=== PATIENT | male | born 1980 | race Caucasian/White ===

== ENCOUNTER 2017-04-01 15:18 | Emergency (ER) | payer BC ==
[~2017-04-01] VITALS: Ht 165.1 cm; Wt 72.2 kg
[~2017-04-01 15:18] MED LIST: DEXL60CA4 PO; LEVO125T72 PO; LIOT1TAB10 PO
[2017-04-01 15:22] VITALS: TEMP 36.7; Ht 165.1 cm; Wt 72.2 kg
[2017-04-01 17:24] LABS: BASO % 0.5 %; BASO ABS # 0.02 K/uL (0-0.2); COMPLETE YES; EOS % 4.7 %; HEMATOCRIT 42.3 % (42-52); IG% 0.3 %; LYMPH % 29.8 %; LYMPH ABS # 1.15 K/uL (1.2-3.4); MEAN CELL VOLUME 87.2 fL (80-100); MEAN CORPUSCULAR HEMOGLOBIN 31.1 pg (25-34); MEAN CORPUSCULAR HGB CONC 35.7 g/dl (32-36); MEAN PLATELET VOLUME 10.2 fL (7.4-10.4); MONO % 7.5 %; NEUT % 57.2 %; PLATELET COUNT 171 K/uL (130-400); RED BLOOD COUNT 4.85 M/uL (4.7-6.1); WHITE BLOOD COUNT 3.86 K/uL (4.8-10.8)
[2017-04-01 17:40] LABS: ALT/SGPT 30 U/L (12-78); BLOOD UREA NITROGEN 18 mg/dl (7-18); BUN/CREATININE RATIO 15.9 (10-20); CALCIUM 9.2 mg/dl (8.5-10.1); CARBON DIOXIDE 31 mmol/L (21-32); CHLORIDE 106 mmol/L (98-107); GLUCOSE 93 mg/dl (70-99); POTASSIUM 4.2 mmol/L (3.5-5.1); SODIUM 141 mmol/L (136-145)
[2017-04-01 17:43] LABS: PROTHROMBIN TIME (PATIENT) 10.3 SECONDS (9.0-12.0)
--- NOTE | 2017-04-01 17:43 | DIAGNOSTIC IMAGING REPORT ---
CHEST ONE VIEW PORTABLE CLINICAL HISTORY: Evaluate Fever/Sepsis dyspnea COMPARISON STUDY: 03/10/2015 FINDINGS: The bones soft tissues and hemidiaphragms are normal. The cardiomediastinal silhouette is normal. The lungs are clear. The pulmonary vasculature is normal. IMPRESSION: Negative chest. The above report was generated using voice recognition software. It may contain grammatical, syntax or spelling errors. Electronically signed by: Juan Garcia M.D. 04/01/2017 5:42 PM Dictated Date/Time: 04/01/2017 5:42 PM
[2017-04-01 17:51] LABS: ALKALINE PHOSPHATASE 73 U/L (45-117); AST/SGOT 24 U/L (15-37); THYROID STIMULATING HORMONE 0.517 uIu/ml (0.300-4.500)
--- NOTE | 2017-04-01 18:43 | EMERGENCY ROOM VISIT NOTE ---
History Report prepared by Daveibe: Jennifer Lin Under the Supervision of: Dr. Lucien Rodriguez D.O. First contact with patient: 16:33 Chief Complaint: CARDIAC ASSESSMENT Stated Complaint: HEART PALPITATIONS,NAUSEA,SOB Nursing Triage Summary: "It feels like my heart is palpating, it comes and goes. I feel really weak and worn out" per pt. Denies CP. History of Present Illness The patient is a 37 year old male who presents to the Emergency Room with complaints of worsening heart palpitations for the past 1 week. He notes the palpitations are intermittent and last for approximately 1 to 2 minutes. They seem to be worse after the patient has eaten. Around 1400 today, he experienced rapid palpitations and dizziness, which prompted him wanting to come to the ED. He also complains of feeling "weak and worn out" over the past few days. He denies any chest pain. The patient has a history of hyperthyroidism and Grave's Disease and underwent a thyroid ablation "several years ago". He follows with Dr. Gee of [facility]. This past Sunday, the patient had blood work drawn by his PCP and he notes he saw [facility] in the past and underwent a Holter monitor that came back unremarkable. 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 A total of 10 systems reviewed and were otherwise negative. Past Medical & Surgical Medical Problems: (1) Asthma (2) Graves disease (3) Hyperthyroidism (4) Hypothyroidism (5) Irritable Bowel Syndrome Surgical Problems: (1) H/O thyroidectomy Family History Diabetes mellitus Social History Smoking Status: Never Smoker Alcohol Use: occasionally Drug Use: none Marital Status: Housing Status: lives with family Occupation Status: employed Current/Historical Medications Scheduled Levothyroxine Sodium (Synthroid), 125 MCG PO DAILY Allergies Coded Allergies: Sulfa Drugs (Verified Allergy, Mild, 04/01/17) Amoxicillin (Unverified Allergy, Unknown, RASH, 04/01/17) Clavulanic Acid (Unverified Allergy, Unknown, RASH, 04/01/17) Promethazine (Unverified Allergy, Unknown, ITCHY/JITTERY, 04/01/17) Physical Exam Vital Signs Date Time Temp Pulse Resp B/P (MAP) Pulse Ox O2 Delivery O2 Flow Rate FiO2 04/01/17 18:26 55 18 110/71 97 Room Air 04/01/17 16:47 52 18 136/77 97 Room Air 04/01/17 16:39 59 04/01/17 15:24 99 Room Air 04/01/17 15:22 36.7 62 16 134/76 99 Room Air Physical Exam CONSTITUTIONAL/VITAL SIGNS: Reviewed / noted above. GENERAL: Non-toxic in appearance. INTEGUMENTARY: Warm, dry, and [place]. HEAD: Normocephalic. EYES: without scleral icterus or trauma. ENT/OROPHARYNX: clear and moist. LYMPHADENOPATHY/NECK: Is supple without lymphadenopathy or meningismus. RESPIRATORY: Lungs clear and equal. CARDIOVASCULAR: Regular rate and rhythm. GI/ABDOMEN: Soft and nontender. No organomegaly or pulsatile mass. No rebound or guarding. Normal bowel sounds. EXTREMITIES: Warm and well perfused. BACK: No CVA tenderness. NEUROLOGICAL: Intact without focal deficits. PSYCHIATRIC: normal affect. MUSCULOSKELETAL: Normally developed with good muscle tone. Medical Decision & Procedures ER Provider Diagnostic Interpretation: Radiology results as stated below per my review and radiologist interpretation: CHEST ONE VIEW PORTABLE CLINICAL HISTORY: Evaluate Fever/Sepsis dyspnea COMPARISON STUDY: 03/10/2015 FINDINGS: The bones soft tissues and hemidiaphragms are normal. The cardiomediastinal silhouette is normal. The lungs are clear. The pulmonary vasculature is normal. IMPRESSION: Negative chest. The above report was generated using voice recognition software. It may contain grammatical, syntax or spelling errors. Electronically signed by: Juan Garcia M.D. 04/01/2017 5:42 PM Laboratory Results 04/01/17 17:15 Red Blood Count 4.85, Mean Corpuscular Volume 87.2, Mean Corpuscular Hemoglobin 31.1, Mean Corpuscular Hemoglobin Concent 35.7, Mean Platelet Volume 10.2, Neutrophils (%) (Auto) 57.2, Lymphocytes (%) (Auto) 29.8, Monocytes (%) (Auto) 7.5, Eosinophils (%) (Auto) 4.7, Basophils (%) (Auto) 0.5, Neutrophils # (Auto) 2.21, Lymphocytes # (Auto) 1.15, Monocytes # (Auto) 0.29, Eosinophils # (Auto) 0.18, Basophils # (Auto) 0.02 04/01/17 17:15 Test 04/01/17 17:15 White Blood Count 3.86 K/uL (4.8-10.8) Red Blood Count 4.85 M/uL (4.7-6.1) Hemoglobin 15.1 g/dL (14.0-18.0) Hematocrit 42.3 % (42-52) Mean Corpuscular Volume 87.2 fL (80-100) Mean Corpuscular Hemoglobin 31.1 pg (25-34) Mean Corpuscular Hemoglobin Concent 35.7 g/dl (32-36) Platelet Count 171 K/uL (130-400) Mean Platelet Volume 10.2 fL (7.4-10.4) Neutrophils (%) (Auto) 57.2 % Lymphocytes (%) (Auto) 29.8 % Monocytes (%) (Auto) 7.5 % Eosinophils (%) (Auto) 4.7 % Basophils (%) (Auto) 0.5 % Neutrophils # (Auto) 2.21 K/uL (1.4-6.5) Lymphocytes # (Auto) 1.15 K/uL (1.2-3.4) Monocytes # (Auto) 0.29 K/uL (0.11-0.59) Eosinophils # (Auto) 0.18 K/uL (0-0.5) Basophils # (Auto) 0.02 K/uL (0-0.2) RDW Standard Deviation 36.9 fL (36.4-46.3) RDW Coefficient of Variation 11.6 % (11.5-14.5) Immature Granulocyte % (Auto) 0.3 % Immature Granulocyte # (Auto) 0.01 K/uL (0.00-0.02) Prothrombin Time 10.3 SECONDS (9.0-12.0) Prothromb Time International Ratio 1.0 (0.9-1.1) Activated Partial Thromboplast Time 26.4 SECONDS (21.0-31.0) Partial Thromboplastin Ratio 1.0 D-Dimer < 190 ug/L FEU (0-500) Anion Gap 4.0 mmol/L (3-11) Est Creatinine Clear Calc Drug Dose 78.4 ml/min Estimated GFR () 97.5 Estimated GFR (Non- 84.1 BUN/Creatinine Ratio 15.9 (10-20) Calcium Level 9.2 mg/dl (8.5-10.1) Total Bilirubin 0.3 mg/dl (0.2-1) Direct Bilirubin < 0.1 mg/dl (0-0.2) Aspartate Amino Transf (AST/SGOT) 24 U/L (15-37) Alanine Aminotransferase (ALT/SGPT) 30 U/L (12-78) Alkaline Phosphatase 73 U/L (45-117) Total Creatine Kinase 400 U/L (39-308) Creatine Kinase MB 3.9 ng/ml (0.5-3.6) Creatine Kinase MB Ratio 1.0 (0-3.0) Troponin I < 0.015 ng/ml (0-0.045) Total Protein 7.5 gm/dl (6.4-8.2) Albumin 4.1 gm/dl (3.4-5.0) Lipase 216 U/L (73-393) Thyroid Stimulating Hormone (TSH) 0.517 uIu/ml (0.300-4.500) Lyme Disease IgG Antibody NEG (NEG) Laboratory results as stated above per my review. ECG Indication: palpitations Rate (beats per minute): 54 Rhythm: sinus bradycardia Findings: no acute ischemic change, no ectopy ED Course 1634: Previous medical records were reviewed. The patient was evaluated in room C8. A complete history and physical examination was performed. 1925: I reevaluated the patient. He is feeling well and resting comfortably. I discussed his results and discharge instructions and he verbalized complete understanding and agreement. Medical Decision the differential that was considered includes acute myocardial infarction, acute coronary syndrome, myocarditis, pericarditis, pericardial effusions / tamponade, esophageal perforation, thoracic aortic dissection, pulmonary embolism, pneumonia, pneumothorax, pancreatitis, shingles, acute cholecystitis, perforated abdominal viscus. This is a 37-year-old male who presents to the ED with a chief complaint of palpitations. He states that he has had palpitations over the last week. Today he noticed that his heart seemed to be racing and he felt like he could not catch his breath. This occurred between 2 and 3 PM today. The patient reports that his symptoms lasted for about 1-2 minutes and resolved. He does report a history of PVCs in the past. He also reports history of hypothyroidism and currently being on Synthroid. He states that he is adjusting the dose because he feels like he might be taking too much. He had blood work by his PCP on Sunday but does not know the results. The patient has no other specific complaints. His exam was normal. His vital signs are normal. He does have an occasional PVC noted on his monitor. His 12-lead EKG reveals sinus bradycardia rate of 54. No acute injury or ectopy. D-dimer is negative, troponin is negative, CBC is unremarkable, complete metabolic panel was normal. TSH is normal, chest x-ray did not show acute disease. Lyme is negative. The patient was monitored during his stay and did not have any significant arrhythmias. The patient was told the results the test. He is felt to be stable for discharge and outpatient follow-up. Medication Reconcilliation Current Medication List: was personally reviewed by me Blood Pressure Screening Patient's blood pressure: Normal blood pressure Blood pressure disposition: Did not require urgent referral Impression Primary Impression: Palpitations Scribe Attestation The scribe's documentation has been prepared under my direction and personally reviewed by me in its entirety. I confirm that the note above accurately reflects all work, treatment, procedures, and medical decision making performed by me. 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 Follow-up with your family doctor as well. Return to the emergency department for worsening or new symptoms or any concerns. You have been examined and treated today on an emergency basis only. This is not a substitute for, or an effort to provide, complete comprehensive medical care. It is impossible to recognize and treat all injuries or illnesses in a single emergency department visit. It is therefore important that you follow up closely with your doctor. Call as soon as possible for an appointment.
[2017-04-01 19:40] VITALS: BP 121/68; PULSE 61; O2SAT 96
== END 2017-04-01 19:40 | disposition home or self-care (01) ==
LOC: C.EDB 15:19 → C.EDC 19:40
DX: R00.2 Palpitations (principal); J45.909 Unspecified asthma, uncomplicated; E05.00 Thyrotoxicosis with diffuse goiter without thyrotoxic crisis or storm; E03.9 Hypothyroidism, unspecified; Z83.3 Family history of diabetes mellitus

== ENCOUNTER 2017-06-28 11:36 | Emergency (ER) | payer BC ==
[~2017-06-28] VITALS: Ht 165.1 cm; Wt 73.0 kg
[~2017-06-28 11:36] MED LIST changes: -DEXL60CA4 PO; -LIOT1TAB10 PO
[2017-06-28 11:39] VITALS: Ht 165.1 cm; Wt 73.0 kg
[2017-06-28] MEDS ORDERED: LIDOCAINE HCL 2% VISC SOLN 20 ML UDC PO STA (12:24)
[2017-06-28] MEDS ORDERED: ALUMINUM/MAGNESIUM SUSP 30 ML UDC PO STA (12:24)
[2017-06-28 12:28] VITALS: O2SAT 97
[2017-06-28] MEDS ORDERED: LEVO112T2 PO (12:28)
--- NOTE | 2017-06-28 13:00 | DIAGNOSTIC IMAGING REPORT ---
CHEST ONE VIEW PORTABLE CLINICAL HISTORY: cp eval for pna pain. Cough. COMPARISON STUDY: 04/01/2017 FINDINGS: The bones soft tissues and hemidiaphragms are normal. The cardiomediastinal silhouette is normal. The lungs are clear. The pulmonary vasculature is normal. IMPRESSION: Negative chest. The above report was generated using voice recognition software. It may contain grammatical, syntax or spelling errors. Electronically signed by: Juan Garcia M.D. 06/28/2017 12:59 PM Dictated Date/Time: 06/28/2017 12:59 PM
[2017-06-28 13:09] LABS: POINT OF CARE TROPONIN I < 0.030 ng/ml (0-0.045)
[2017-06-28 13:29] LABS: PROTHROMBIN TIME (PATIENT) 10.7 SECONDS (9.0-12.0)
[2017-06-28 13:37] LABS: BASO % 0.4 %; BASO ABS # 0.02 K/uL (0-0.2); COMPLETE YES; EOS % 3.2 %; HEMATOCRIT 44.8 % (42-52); IG% 0.2 %; LYMPH % 27.2 %; LYMPH ABS # 1.27 K/uL (1.2-3.4); MEAN CELL VOLUME 91.2 fL (80-100); MEAN CORPUSCULAR HGB CONC 33.9 g/dl (32-36); MEAN PLATELET VOLUME 10.6 fL (7.4-10.4); MONO % 9.2 %; NEUT % 59.8 %; PLATELET COUNT 186 K/uL (130-400); RED BLOOD COUNT 4.91 M/uL (4.7-6.1); WHITE BLOOD COUNT 4.67 K/uL (4.8-10.8)
[2017-06-28 13:39] LABS: BUN/CREATININE RATIO 15.6 (10-20); CREATININE 1.07 mg/dl (0.60-1.40); POTASSIUM 3.9 mmol/L (3.5-5.1)
[2017-06-28 13:50] LABS: THYROID STIMULATING HORMONE 2.87 uIu/ml (0.300-4.500)
[2017-06-28 16:27] VITALS: BP 113/75; PULSE 86; TEMP 36.9; O2SAT 96
--- NOTE | 2017-06-28 17:02 | EMERGENCY ROOM VISIT NOTE ---
History Report prepared by Jamal: Reese Moreno Under the Supervision of: Dr. Jack Shaffer M.D. First contact with patient: 12:16 Chief Complaint: CHEST PAIN Stated Complaint: CHEST PAIN, DIZZY Nursing Triage Summary: Dizziness, heart palpitations, & headaches since March, seeing two specialists for it but continues to feel worse. This week developed CP. Pt verbalizes his neurologist thinks its cluster headaches. Pt had labwork done today here from chief clinical dietitian, Dr. Montes at in [facility], does not have results yet. History of Present Illness The patient is a 37 year old male who presents to the Emergency Room with complaints of intermittent chest pain beginning four days ago. He was doing yard -work when his pain began. He has had pain everyday, and states that it is present for a few hours at a time. The patient states that his pain is generally present when his heart rate increases. He also complains of some shortness of breath. He describes his pain as a feeling of "pressure", with occasional "sharp" pains. He denies abdominal pain, fevers, or vomiting. The patient's pain is worsened with eating. He denies drug or tobacco use. He has a family history of two uncles having heart attacks in their 50's. 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 The patient states that he has been having problems with "pressure" in his eyes, heart palpations, and headache 3-4 times per day for the past three months. He has followed up with a neurologist, who believes these symptoms to be cluster- headaches. His headaches, heart palpitations, and "pressure" in his eyes are unchanged from the normal. The patient has been on Prednisone for his headaches , but feels that this has not helped. He was seen by an chief clinical dietitian yesterday. Source of History: patient Onset: Four days ago Position: chest Symptom Intensity: A few hours at at time Quality: pressure, sharp Timing: intermittent Modifying Factors (Worsening): eating, other (elevated heart rate) Associated Symptoms: + SOB, No fevers, No vomiting, No abdominal pain Review of Systems See HPI for pertinent positives & negatives. A total of 10 systems reviewed and were otherwise negative. Past Medical & Surgical Medical Problems: (1) Asthma (2) Graves disease (3) Hyperthyroidism (4) Hypothyroidism (5) Irritable Bowel Syndrome Surgical Problems: (1) H/O thyroidectomy Family History Diabetes mellitus Social History Smoking Status: Never Smoker Alcohol Use: occasionally Drug Use: none Marital Status: Housing Status: lives with family Occupation Status: employed Current/Historical Medications Scheduled Levothyroxine Sodium (Synthroid), 112 MCG PO DAILY Allergies Coded Allergies: Sulfa Drugs (Verified Allergy, Mild, 06/28/17) Amoxicillin (Unverified Allergy, Unknown, RASH, 06/28/17) Clavulanic Acid (Unverified Allergy, Unknown, RASH, 06/28/17) Promethazine (Unverified Allergy, Unknown, ITCHY/JITTERY, 06/28/17) Tramadol (Unverified Allergy, Unknown, UNKNOWN, 06/28/17) Physical Exam Vital Signs Date Time Temp Pulse Resp B/P (MAP) Pulse Ox O2 Delivery O2 Flow Rate FiO2 06/28/17 16:27 36.9 86 18 113/75 96 Room Air 06/28/17 14:42 36.9 54 18 107/64 96 Room Air 06/28/17 12:36 75 06/28/17 12:28 97 Room Air 06/28/17 12:16 98 Room Air 06/28/17 12:16 37.0 62 18 112/75 98 Room Air 06/28/17 11:39 98 Room Air 06/28/17 11:39 36.3 77 18 125/72 99 Room Air Physical Exam Constitutional: Vital signs reviewed. Eyes: Pupils are equal round reactive to light. Conjunctiva are noninjected. ENT: Pharynx is clear without erythema or exudate. Mucous membranes are moist. Neck supple without meningeal signs. Respiratory: Clear to auscultation bilaterally. Breath sounds are equal bilaterally. Cardiovascular: Regular rate and rhythm. No rubs or gallops. GI: Soft, nondistended and nontender. Bowel sounds are present. Musculoskeletal: No peripheral edema. No lower extremity tenderness. Integumentary: No cyanosis. Neurological: The patient is awake and alert. No focal deficits. Psychiatric: Slightly anxious appearing. Medical Decision & Procedures ER Provider Diagnostic Interpretation: X-ray results as stated below per interpretation by me and the radiologist: CHEST ONE VIEW PORTABLE FINDINGS: The bones soft tissues and hemidiaphragms are normal. The cardiomediastinal silhouette is normal. The lungs are clear. The pulmonary vasculature is normal. IMPRESSION: Negative chest. The above report was generated using voice recognition software. It may contain grammatical, syntax or spelling errors. Electronically signed by: Juan Garcia M.D. 06/28/2017 12:59 PM Laboratory Results 06/28/17 12:43 Red Blood Count 4.91, Mean Corpuscular Volume 91.2, Mean Corpuscular Hemoglobin 31.0, Mean Corpuscular Hemoglobin Concent 33.9, Mean Platelet Volume 10.6, Neutrophils (%) (Auto) 59.8, Lymphocytes (%) (Auto) 27.2, Monocytes (%) (Auto) 9.2, Eosinophils (%) (Auto) 3.2, Basophils (%) (Auto) 0.4, Neutrophils # (Auto) 2.79, Lymphocytes # (Auto) 1.27, Monocytes # (Auto) 0.43, Eosinophils # (Auto) 0.15, Basophils # (Auto) 0.02 06/28/17 12:43 Test 06/28/17 12:43 06/28/17 12:49 White Blood Count 4.67 K/uL (4.8-10.8) Red Blood Count 4.91 M/uL (4.7-6.1) Hemoglobin 15.2 g/dL (14.0-18.0) Hematocrit 44.8 % (42-52) Mean Corpuscular Volume 91.2 fL (80-100) Mean Corpuscular Hemoglobin 31.0 pg (25-34) Mean Corpuscular Hemoglobin Concent 33.9 g/dl (32-36) Platelet Count 186 K/uL (130-400) Mean Platelet Volume 10.6 fL (7.4-10.4) Neutrophils (%) (Auto) 59.8 % Lymphocytes (%) (Auto) 27.2 % Monocytes (%) (Auto) 9.2 % Eosinophils (%) (Auto) 3.2 % Basophils (%) (Auto) 0.4 % Neutrophils # (Auto) 2.79 K/uL (1.4-6.5) Lymphocytes # (Auto) 1.27 K/uL (1.2-3.4) Monocytes # (Auto) 0.43 K/uL (0.11-0.59) Eosinophils # (Auto) 0.15 K/uL (0-0.5) Basophils # (Auto) 0.02 K/uL (0-0.2) RDW Standard Deviation 41.0 fL (36.4-46.3) RDW Coefficient of Variation 12.3 % (11.5-14.5) Immature Granulocyte % (Auto) 0.2 % Immature Granulocyte # (Auto) 0.01 K/uL (0.00-0.02) Prothrombin Time 10.7 SECONDS (9.0-12.0) Prothromb Time International Ratio 1.0 (0.9-1.1) Activated Partial Thromboplast Time 25.5 SECONDS (21.0-31.0) Partial Thromboplastin Ratio 1.0 Anion Gap 6.0 mmol/L (3-11) Est Creatinine Clear Calc Drug Dose 80.6 ml/min Estimated GFR () 100.8 Estimated GFR (Non- 87.0 BUN/Creatinine Ratio 15.6 (10-20) Calcium Level 9.0 mg/dl (8.5-10.1) Thyroid Stimulating Hormone (TSH) 2.870 uIu/ml (0.300-4.500) Free Thyroxine 1.08 ng/dl (0.80-1.60) Bedside D-Dimer 196 ng/mlFEU (0-450) Bedside Troponin I < 0.030 ng/ml (0-0.045) Laboratory results as reviewed by me. Medications Administered Medications (Trade) Dose Ordered Sig/Juana Route Start Time Stop Time Status Last Admin Dose Admin Lidocaine HCl (Viscous Lidocaine 2% Soln) 10 ml NOW STAT PO 06/28/17 12:24 06/28/17 12:26 DC 06/28/17 12:55 10 ML Al Hydroxide/Mg Hydroxide (Maalox Susp) 30 ml NOW STAT PO 06/28/17 12:24 06/28/17 12:26 DC 06/28/17 12:55 30 ML ECG Indication: chest pain Rate (beats per minute): 71 Rhythm: normal sinus Findings: no acute ischemic change, no ectopy ED Course 1218: The patient was evaluated in room A12B. A complete history and physical exam was performed. 1224: Ordered Maalox Susp 30 ml PO, Viscous Lidocaine 2% 10 mL PO. 1622: Upon reevaluation, the patient appeared to have improvement of his symptoms. I discussed tonight's findings with him. He verbalized agreement of the treatment plan. He will take Pepcid as he just finished Prednisone. The patient was discharged home. Medical Decision This is a 37-year-old male who presents with chest pain and palpitations. Differential diagnosis includes GERD, pulmonary embolism, pneumothorax, unstable angina, [place], esophagitis. I did perform a limited focused review of portions of the patient's old chart on the electronic medical record. The patient was here in March for one week of palpitations which were worse after eating, as well as dizziness. Noted to have had a Holter monitor in the past which was unremarkable. Blood-work was unremarkable, and patient was discharged home. I did evaluate the patient as noted above. The patient has had chronic headaches and palpitations for several months. He has been followed by his doctor and the specialist for this. He was diagnosed with cluster headaches and placed on prednisone. He is presenting with intermittent chest pressure with occasional sharp pains over the past 4 days. He states it is not associated with exertion, although it did start when he was raking leaves. He states it seems to be worse when he eats. His only known cardiac risk factor is 2 uncles who had to have bypass surgery in their 50s. IV access was established. The patient was placed on a continuous ekg monitor tech. I did treat patient with a GI cocktail. I did order and personally review the patient 's 12-lead EKG and chest x-ray as described above. His 12-lead EKG is unremarkable. Chest x-ray does not show any acute abnormality. I did order and review the patient's blood work as noted in the electronic medical record. Troponin and d-dimer are both negative. I did reassess patient. He states that his chest pressure is resolved. He states intermittently he gets some occasional twinges of pain. I did discuss the test results with him. I did discuss case with Dr. Anderson of cardiology who agreed to a stress test today. Stress test was performed and showed no acute abnormality per cardiology. I did discuss the testicles with the patient. I did suggest that the prednisone may be upsetting his stomach given that he had improvement of his symptoms with a GI cocktail. He states he is finished taking the prednisone. He was advised to take [id number] Maalox or Pepcid and to follow closely with his doctor. He was discharged in good condition. Medication Reconcilliation Current Medication List: was personally reviewed by me Blood Pressure Screening Patient's blood pressure: Normal blood pressure Blood pressure disposition: Did not require urgent referral Consults Time Called: 1420 Consulting Physician: Dr. Coombs -Cardiology Returned Call: [address] Anderson of Cardiology. We discussed the patient and his results. Dr. Anderson agrees to a stress echocardiogram. 1618: I discussed the patient's case with Dr. Coombs. The patient's stress test was normal. Impression Primary Impression: Acute chest pain Additional Impressions: Palpitations Chronic headache Scribe Attestation The scribe's documentation has been prepared under my direct and personally reviewed by me in its entirety. I confirm that the note above accurately reflects all work, treatment, procedures, and medical decision making performed by me. Departure Information Dispostion Home / Self-Care Referrals Chance Villarreal M.D. (PCP) Forms Call Back Authorization, HOME CARE DOCUMENTATION FORM, IMPORTANT VISIT INFORMATION Patient Instructions ED Chest Pain Atypical Unkn Cause, My [facility] Additional Instructions You have been examined and treated today on an emergency basis only. This is not a substitute for, or an effort to provide, complete comprehensive medical care. It is impossible to recognize and treat all injuries or illnesses in a single emergency department visit. It is therefore important that you follow up closely with your physician. Call as soon as possible for an appointment. Return for worsening symptoms or if you develop fever, vomiting, black or tarry stools or any other concerning symptoms. Problem Qualifiers Additional Impressions: Chronic headache Headache type: cluster Intractability: not intractable Qualified Codes: G44.029 - Chronic cluster headache, not intractable
--- NOTE | 2017-06-28 20:51 | EXERCISE STRESS ECHO ---
*NOTICE TO RECEIVING [employer] This information is strictly Confidential and protected under [place] law. [place] law prohibits you from making any further disclosure of this information unless further disclosure is expressly permitted by the written consent of the person to whom it pertains or is authorized by law. A general authorization for the release of medical or other information is not sufficient for this purpose. Hospital accepts no responsibility if the information is made available to any other person, INCLUDING THE PATIENT. Interpretation Summary * Name: NAEEM BREWER Study Date: 06/28/2017 03:34 PM BP: 117/72 mmHg * Patient Location: [facility] HR: 73 * : 1980 (M/d/yyyy) Gender: Male Height: 65 in * Age: 37 yrs Ethnicity: [place] Weight: 160 lb * Ordering Physician: Jack Shaffer * Referring Physician: Self, Referred * Performed By: Eloina Kimble RDCS * * Reason For Study: Chest Pain * BSA: 1.8 m2 * STRESS STUDY: Normal exercise stress echocardiogram. No echocardiographic or ECG evidence of myocardial ischemia having achieved heart rate adequate for diagnostic purposes. * _ workload achieved. * -- Conclusions -- * Ejection Fraction = 60-65%. * Pulse wave TDI of the anterior and posterior mitral annulas demonstrates normal LV relaxation * No signifiicant valvular disease. Procedure Details * ECHOEX, CPT #[id number] * ECHO COLOR FLOW, CPT #[id number] * ECHO DOPPLER, CPT #[id number] Left Ventricle * The left ventricle is normal in size. * There is normal left ventricular wall thickness. * Ejection Fraction = 60-65%. * Left ventricular systolic function is normal. * The left ventricular ejection fraction increases normally with stress. The left ventricular end-systolic cavity size reduces post-stress (normal response). The left ventricular wall motion with stress is normal. * Resting wall motion: Normal. Stress wall motion: Appropriate increase in Left ventricular systolic function and decrease in cavity size. No stress induced segmental wall motion abnormalities. Right Ventricle * The right ventricle is normal in size and function. Atria * The left atrial size is normal. * Right atrial size is normal. * No ASD detected; PFO is not assessed. Mitral Valve * The mitral valve is normal. * There is no mitral valve stenosis. * There is trace mitral regurgitation. Tricuspid Valve * The tricuspid valve is normal. * There is no tricuspid stenosis. * There is trace tricuspid regurgitation. Aortic Valve * The aortic valve is trileaflet. * No hemodynamically significant valvular aortic stenosis. * No aortic regurgitation is present. Pulmonic Valve * The pulmonic valve is not well visualized. Great Vessels * The aortic root is normal size. Pericardium * There is no pericardial effusion. Stress Parameters * The baseline ECG displays normal sinus rhythm. * Stress ECG: No ST changes. No arrhythmias. * The stress portion of this study was personally supervised by the undersigned interpreting physician. * Rest heart rate was '73' BPM. * Rest blood pressure was '117/72' * Maximum heart rate achieved was 164 bpm. * Maximum heart rate was 90 % of maximum age-predicted heart rate. * Maximum blood pressure was '159/73' * Total exercise time was '11:21' * Maximum exercise MET level achieved was '13.40' METS * Maximum treadmill speed was '4.20' miles per hour. * Maximum treadmill elevation was '16.00'% grade. * Normal blood pressure response to exercise. * Exercise was terminated due to 'fatigue' Left Ventricular Diastolic Function * Pulse wave TDI of the anterior and posterior mitral annulas demonstrates normal LV relaxation MMode 2D Measurements and Calculations IVSd 0.94 cm IVSs 1.2 cm LVIDd 4.6 cm LVIDs 3.1 cm LVPWd 0.99 cm LVPWs 1.4 cm IVS/LVPW 0.94 FS 32.4 % EDV(Teich) 98.9 ml ESV(Teich) 38.8 ml EF(Teich) 60.8 % EDV(cubed) 99.3 ml ESV(cubed) 30.6 ml EF(cubed) 69.2 % % IVS thick 28.0 % % LVPW thick 36.1 % LV mass(C)d 152.8 grams LV mass(C)dI 85.0 grams/m\S\2 LV mass(C)s 127.5 grams LV mass(C)sI 70.8 grams/m\S\2 SV(Teich) 60.1 ml SI(Teich) 33.4 ml/m\S\2 SV(cubed) 68.7 ml SI(cubed) 38.2 ml/m\S\2 Ao root diam 3.2 cm Ao root area 7.9 cm\S\2 ACS 2.5 cm LA dimension 3.2 cm LA/Ao 1.0 LVAd ap4 30.1 cm\S\2 LVLd ap4 8.3 cm EDV(MOD-sp4) 95.6 ml EDV(sp4-el) 93.2 ml LVAs ap4 16.4 cm\S\2 LVLs ap4 6.7 cm ESV(MOD-sp4) 35.8 ml ESV(sp4-el) 34.1 ml EF(MOD-sp4) 62.6 % EF(sp4-el) 63.4 % LVAd ap2 31.3 cm\S\2 LVLd ap2 9.0 cm EDV(MOD-sp2) 94.5 ml EDV(sp2-el) 92.4 ml LVAs ap2 15.6 cm\S\2 LVLs ap2 7.0 cm ESV(MOD-sp2) 31.3 ml ESV(sp2-el) 29.5 ml EF(MOD-sp2) 66.9 % EF(sp2-el) 68.1 % LVLd %diff 8.1 % EDV(MOD-bp) 100.7 ml LVLs %diff 4.2 % ESV(MOD-bp) 34.2 ml EF(MOD-bp) 66.0 % SV(MOD-sp4) 59.8 ml SI(MOD-sp4) 33.3 ml/m\S\2 SV(MOD-sp2) 63.2 ml SI(MOD-sp2) 35.1 ml/m\S\2 SV(MOD-bp) 66.5 ml SI(MOD-bp) 36.9 ml/m\S\2 SV(sp4-el) 59.1 ml SI(sp4-el) 32.8 ml/m\S\2 SV(sp2-el) 62.9 ml SI(sp2-el) 35.0 ml/m\S\2 Doppler Measurements and Calculations MV E max zeny 76.2 cm/sec MV A max zeny 55.8 cm/sec MV E/A 1.4 MV dec time 0.29 sec Ao V2 max 121.2 cm/sec Ao max PG 5.9 mmHg Ao max PG (full) 2.0 mmHg LV V1 max PG 3.9 mmHg LV V1 max 98.5 cm/sec PA V2 max 102.8 cm/sec PA max PG 4.2 mmHg TR max zeny 128.0 cm/sec
== END 2017-06-28 16:34 | disposition home or self-care (01) ==
LOC: C.EDB 11:38 → C.EDA 16:34
DX: R07.9 Chest pain, unspecified (principal); R00.2 Palpitations; G44.029 Chronic cluster headache, not intractable; Z82.49 Family history of ischemic heart disease and other diseases of the circulatory system; Z79.899 Other long term (current) drug therapy; J45.909 Unspecified asthma, uncomplicated; E05.00 Thyrotoxicosis with diffuse goiter without thyrotoxic crisis or storm; K58.9 Irritable bowel syndrome, unspecified; E89.0 Postprocedural hypothyroidism; Z83.3 Family history of diabetes mellitus

== ENCOUNTER → 2017-07-01 | Outpatient (CLI) | payer BC ==
[~2017-07-01] MED LIST changes: +LEVO112T2 PO; -LEVO125T72 PO
[2017-07-05 07:29] LABS: CALC TOTAL (E+NE) 45 mcg/24 h (26-121); NOREPINEPHRINE UR 45 mcg/24 h (15-100)
== END | disposition home or self-care (01) ==
LOC: C.LABSPEC 08:26
PROVIDERS: ATTEND Internal Medicine Endocrinology, Diabetes & Metabolism
DX: E03.9 Hypothyroidism, unspecified (principal); E16.2 Hypoglycemia, unspecified; R00.2 Palpitations

== ENCOUNTER 2017-07-31 12:32 | Emergency (ER) | payer BC ==
[~2017-07-31] VITALS: Ht 165.1 cm; Wt 74.7 kg
[2017-07-31 12:41] VITALS: TEMP 36.9; Ht 165.1 cm; Wt 74.7 kg
[2017-07-31] MEDS ORDERED: DOXY100C PO (13:09)
[2017-07-31] MEDS ORDERED: DOXYCYCLINE HYCLATE 100 MG CAP PO ONE (13:15)
[2017-07-31 13:22] VITALS: BP 121/75; PULSE 78; O2SAT 99
--- NOTE | 2017-07-31 17:11 | EMERGENCY ROOM VISIT NOTE ---
History Report prepared by Jamal: Tez Villagran Under the Supervision of: Dr. Wil Ibrahim D.O. First contact with patient: 12:47 Chief Complaint: SINUS CONGESTION/PRESSURE Stated Complaint: SINUS PRESSURE AND NECK PAIN Nursing Triage Summary: "I have been dealing with a cold for 1 month and I woke up with stiff neck 2 days ago." Denies headaches or rashes. History of Present Illness The patient is a 37 year old male with a history of C. difficile who presents to the Emergency Room with complaints of a worsening illness that started 4 weeks ago. He states that he started with cold symptoms, with sinus congestion, a cough, and an intermittent sore throat. The patient notes that the cough is intermittent and is intermittently productive as well. He says that he has been letting the illness run its course, but the congestion then came back a week ago. He adds that 2 days ago, he woke up with a stiff neck, with pain with movement. He denies any headache currently. He tried to get in to see his doctor today, but he was unable to get in, so he decided to come here. The patient denies any notable ear pain, fevers, nausea, vomiting, diarrhea, chest pain, shortness of breath, or pain or burning with urination. The patient notes that his and daughter have been dealing with sinus infections. He says that his tetanus shot may not be up to date. Source of History: patient Onset: 4 weeks ago Position: other (global - illness) Timing: worsening Associated Symptoms: + headache, + sorethroat, + cough, + neck pain (and stiff), No fevers, No chest pain, No SOB, No nausea, No vomiting, No urinary symptoms Note: Associated symptoms: Sinus congestion. Denies ear pain. Review of Systems See HPI for pertinent positives & negatives. A total of 10 systems reviewed and were otherwise negative. Past Medical & Surgical Medical Problems: (1) Asthma (2) Graves disease (3) Hyperthyroidism (4) Hypothyroidism (5) Irritable Bowel Syndrome Surgical Problems: (1) H/O thyroidectomy Family History Diabetes mellitus Social History Smoking Status: Never Smoker Alcohol Use: occasionally Drug Use: none Marital Status: Housing Status: lives with family Occupation Status: employed Current/Historical Medications Scheduled Doxycycline Hyclate (Vibramycin), 100 MG PO BID Levothyroxine Sodium (Synthroid), 112 MCG PO DAILY Allergies Coded Allergies: Sulfa Drugs (Verified Allergy, Mild, 06/28/17) Amoxicillin (Unverified Allergy, Unknown, RASH, 06/28/17) Clavulanic Acid (Unverified Allergy, Unknown, RASH, 06/28/17) Promethazine (Unverified Allergy, Unknown, ITCHY/JITTERY, 06/28/17) Tramadol (Unverified Allergy, Unknown, UNKNOWN, 06/28/17) Physical Exam Vital Signs Date Time Temp Pulse Resp B/P (MAP) Pulse Ox O2 Delivery O2 Flow Rate FiO2 07/31/17 13:22 78 16 121/75 99 07/31/17 12:41 36.9 79 16 131/76 97 Room Air Physical Exam GENERAL: Sitting up in bed, alert, well appearing, well nourished, no distress, non-toxic EYE EXAM: normal conjunctiva. HEAD: Tenderness in frontal and maxillary sinuses. EARS: TM's clear bilaterally. OROPHARYNX: no exudate, no erythema, lips, buccal mucosa, and tongue normal and mucous membranes are moist NECK: Supple, no nuchal rigidity, no adenopathy, non-tender, negative Brudzinski 's. Tenderness bilateral cervical spine musculature. LUNGS: Clear to auscultation. Normal chest wall mechanics HEART: no murmurs, S1 normal and S2 normal ABDOMEN: abdomen soft, non-tender, normo-active bowel sounds, no masses, no rebound or guarding. BACK: Back is symmetrical on inspection and there is no deformity, no midline tenderness, no CVA tenderness. SKIN: no rashes and no bruising UPPER EXTREMITIES: upper extremities are grossly normal. LOWER EXTREMITIES: No pitting edema. NEURO EXAM: Normal sensorium, cranial nerves II-XII grossly intact, normal speech, no gross weakness of arms, no gross weakness of legs. Medical Decision & Procedures Medications Administered Medications (Trade) Dose Ordered Sig/Juana Route Start Time Stop Time Status Last Admin Dose Admin Doxycycline Hyclate (Vibramycin Cap) 100 mg ONE ONCE PO 07/31/17 13:15 07/31/17 13:16 DC 07/31/17 13:22 100 MG ED Course ED COURSE: Vital signs were reviewed and showed normal vitals. The patients medical record was reviewed The above diagnostic studies were performed and reviewed. ED treatments and interventions as stated above. 1249: The patient was evaluated in room C5. A complete history and physical examination was performed. I discussed my findings with the patient and he understands and agrees with the treatment plan. Based on the patients age, coexisting illnesses, exam and lab findings the decision to treat as an outpatient was made. The patient remained stable while under my care. The patient appeared well at the time of discharge. 1315: Ordered Vibramycin Cap 100 mg PO. Medical Decision Differential diagnosis: Etiologies such as viral syndrome, otitis, pharyngitis, pneumonia, influenza, meningitis, urinary tract infection, sepsis, bacteremia, as well as others were entertained. Patient is a 37-year-old male who presents to ER for upper esterase symptoms associated with congestion, tenderness over the sinuses, cough, runny nose and sore throat. He also admits to mild neck discomfort. No nuchal rigidity. He does have muscle skeletal neck discomfort. Patient is completely neurologically intact. Patient was symptoms I do favor this is likely sinusitis. He was given doxycycline. Patient was discharged follow-up with PCP as an outpatient. Do favor the next pain is likely muscle skeletal in nature. Without headache or fevers will not tap at this time. Discussed with Pt concerning signs and symptoms to watch out for. Pt was instructed to follow up with their PCP and discussed with the patient their option to return to the ED at anytime for persistent or worsening symptoms. The appropriate anticipatory guidance and out-patient management, including indications for return to the emergency department, were explained at length to the patient and understood. Medication Reconcilliation Current Medication List: was personally reviewed by me Blood Pressure Screening Patient's blood pressure: Normal blood pressure Impression Primary Impression: Sinusitis Scribe Attestation The scribe's documentation has been prepared under my direction and personally reviewed by me in its entirety. I confirm that the note above accurately reflects all work, treatment, procedures, and medical decision making performed by me. Departure Information Dispostion Home / Self-Care Prescriptions Doxycycline Hyclate (VIBRAMYCIN) 100 Mg Cap 100 MG PO BID for 10 Days, CAP Prov: Wil Ibrahim DO 07/31/17 Referrals Chance Villarreal M.D. (PCP) Patient Instructions My [facility], Sinusitis Acute Additional Instructions Please follow up with your primary care doctor with in the next 24 hours. Any worsening of your symptoms, please return to the ED immediately. This includes any fevers greater than 100.4, worsening pain, chest pain, shortness breath, persistent nausea, vomiting, unable to eat or drink, or any other concerning signs or symptoms from your standpoint. Please take your antibiotics as prescribed. Please take the antibiotic with food. Problem Qualifiers Primary Impression: Sinusitis Sinusitis location: frontal Chronicity: acute Recurrence: non-recurrent Qualified Codes: J01.10 - Acute frontal sinusitis, unspecified
== END 2017-07-31 13:23 | disposition home or self-care (01) ==
LOC: C.EDB 12:34 → C.EDC 13:23
DX: J32.9 Chronic sinusitis, unspecified (principal); M43.6 Torticollis; E05.90 Thyrotoxicosis, unspecified without thyrotoxic crisis or storm; E03.9 Hypothyroidism, unspecified; K58.9 Irritable bowel syndrome, unspecified; J45.909 Unspecified asthma, uncomplicated; Z98.890 Other specified postprocedural states; Z79.899 Other long term (current) drug therapy; Z88.1 Allergy status to other antibiotic agents; Z88.2 Allergy status to sulfonamides; Z88.8 Allergy status to other drugs, medicaments and biological substances; Z83.3 Family history of diabetes mellitus

== ENCOUNTER 2017-10-29 12:01 | Emergency (ER) | payer BC ==
[~2017-10-29] VITALS: Ht 165.1 cm; Wt 72.2 kg
[2017-10-29 12:09] VITALS: Ht 165.1 cm; Wt 72.2 kg
[2017-10-29 13:53] VITALS: TEMP 36.6
[2017-10-29] MEDS ORDERED: RANI150T3 PO (15:00)
[2017-10-29] MEDS ORDERED: ONDANSETRON INJ 2 MG/ML 2 ML VIAL IV STA (15:12)
[2017-10-29] MEDS ORDERED: KETOROLAC TROMETHAMINE 30 MG/ML VIAL IV STA (15:12)
--- NOTE | 2017-10-29 15:13 | EMERGENCY ROOM VISIT NOTE ---
History Report prepared by Jamal: Alfred Adhikari Under the Supervision of: Dr. Timo Paul M.D. First contact with patient: 14:42 Chief Complaint: ABDOMINAL PAIN Stated Complaint: ABDOMINAL PAIN Nursing Triage Summary: having abdominal pain. denies n/v/d. hx of ibs History of Present Illness The patient is a 37 year old white male with a past medical history of asthma, graves disease, hyperthyroidism, hypothyroidism, irritable Bowel Syndrome and thyroidectomy who presents to the Emergency Room with complaints of intermittent right lower quadrant abdominal pain that he has been experiencing for the past month. The patient states that he has been experiencing an intermittent "cramping" sensation for the past month, which worsened in persistence and severity today. His pain feels more "sharp" than cramping currently, and he has noticed that it is worsened by eating. The patient did also note some burning with urination today, but denies any penile/testicular pain. His last bowel movement was earlier today and normal. Source of History: patient Onset: 1 month Position: abdomen (RLQ) Quality: sharp, cramping Timing: intermittent, worsening (worsening in severity and persistence) Modifying Factors (Worsening): eating Review of Systems See HPI for pertinent positives and negatives. A total of ten systems were reviewed and were otherwise negative. Past Medical & Surgical Medical Problems: (1) Asthma (2) Graves disease (3) Hyperthyroidism (4) Hypothyroidism (5) Irritable Bowel Syndrome Surgical Problems: (1) H/O thyroidectomy Family History Diabetes mellitus Social History Smoking Status: Never Smoker Alcohol Use: occasionally Drug Use: none Marital Status: Housing Status: lives with family Occupation Status: employed Current/Historical Medications Scheduled Dicyclomine Hcl (Bentyl), 10 MG PO TID Levothyroxine Sodium (Synthroid), 112 MCG PO QAM Ranitidine Hcl (Zantac), 150 MG PO HS Allergies Coded Allergies: Sulfa Drugs (Verified Allergy, Mild, 10/29/17) Amoxicillin (Unverified Allergy, Unknown, RASH, 10/29/17) Clavulanic Acid (Unverified Allergy, Unknown, RASH, 10/29/17) Promethazine (Unverified Allergy, Unknown, ITCHY/JITTERY, 10/29/17) Tramadol (Unverified Allergy, Unknown, UNKNOWN, 10/29/17) Physical Exam Vital Signs Date Time Temp Pulse Resp B/P (MAP) Pulse Ox O2 Delivery O2 Flow Rate FiO2 10/29/17 17:30 65 16 124/74 97 Room Air 10/29/17 16:34 56 18 108/73 100 Room Air 10/29/17 13:53 36.6 61 61 122/74 Room Air 10/29/17 12:09 36.6 66 18 130/74 98 Room Air Physical Exam GENERAL: Awake, alert, well-appearing, NAD HENT: Normocephalic, atraumatic. EYES: Normal conjunctiva. Sclera non-icteric. NECK: Supple. No nuchal rigidity. FROM. RESPIRATORY: CTAB, no rhonchi, wheezing, crackles CARDIAC: RRR, no MRG ABDOMEN: Soft, NTND, BS+ MSK: No chest wall TTP, no LE edema. No CVA TTP. Negative psoas, positive obturators. NEURO: GCS 15, CN 2-12 intact, moves all 4s on command SKIN: No rash or jaundice noted. : No scrotal swelling, no penile discharge, no evidence of hernia, normal circumcised genitalia. Medical Decision & Procedures ER Provider Diagnostic Interpretation: Radiology results as stated below per my review and radiologist interpretation: ABD/PELVIS IV CONTRAST ONLY CLINICAL HISTORY: 37 years-old Male presenting with RLQ TTP. TECHNIQUE: Multidetector CT of the abdomen and pelvis was performed after the administration of intravenous contrast. IV contrast: 110 mL of Optiray 320. A dose lowering technique was used consistent with the principles of ALARA (as low as reasonably achievable). COMPARISON: 04/29/2009. CT DOSE (mGy.cm): The estimated cumulative dose is 288.01 mGy.cm. FINDINGS: Nut [employer]er topogram: Unremarkable. Lung bases: Lungs and pleural spaces clear. Normal heart size. No pericardial or pleural effusion. Liver: Normal morphology. No liver lesion. Patent hepatic vasculature. Biliary: No intrahepatic or extrahepatic biliary ductal dilatation. Normal gallbladder. Pancreas: Normal. Spleen: Normal. Adrenal glands: Normal. Kidneys and ureters: Subcentimeter hypodensity in the right kidney likely simple cyst. Punctate nonobstructing calculus in the left kidney. Bladder: Incompletely evaluated secondary to underdistention. Pelvic organs: Prostate and seminal vesicles normal. Bowel: Normal. No bowel obstruction. Peritoneal cavity: No free fluid or intraperitoneal gas. Lymph nodes: No enlarged lymph nodes in the abdomen or pelvis. Vasculature: Aorta and IVC patent and normal in caliber. Abdominal wall: Small fat-containing umbilical hernia. Musculoskeletal: Bone island noted in in the right pubis. Osseous structures normal. IMPRESSION: 1. No acute intra-abdominal pathology. Electronically signed by: Toni Santoro M.D. 10/29/2017 4:36 PM Dictated Date/Time: 10/29/2017 4:30 PM Laboratory Results 10/29/17 15:35 Red Blood Count 5.06, Mean Corpuscular Volume 86.8, Mean Corpuscular Hemoglobin 30.6, Mean Corpuscular Hemoglobin Concent 35.3, Mean Platelet Volume 9.8, Neutrophils (%) (Auto) 52.4, Lymphocytes (%) (Auto) 34.9, Monocytes (%) (Auto) 9.4, Eosinophils (%) (Auto) 3.0, Basophils (%) (Auto) 0.3, Neutrophils # (Auto) 1.89, Lymphocytes # (Auto) 1.26, Monocytes # (Auto) 0.34, Eosinophils # (Auto) 0.11, Basophils # (Auto) 0.01 10/29/17 15:35 Test 10/29/17 15:20 10/29/17 15:35 10/29/17 15:42 Urine Color YELLOW Urine Appearance CLEAR (CLEAR) Urine pH 6.5 (4.5-7.5) Urine Specific [place] 1.016 (1.000-1.030) Urine Protein NEG (NEG) Urine Glucose (UA) NEG (NEG) Urine Ketones TRACE (NEG) Urine Occult Blood NEG (NEG) Urine Nitrite NEG (NEG) Urine Bilirubin NEG (NEG) Urine Urobilinogen NEG (NEG) Urine Leukocyte Esterase NEG (NEG) White Blood Count 3.61 K/uL (4.8-10.8) Red Blood Count 5.06 M/uL (4.7-6.1) Hemoglobin 15.5 g/dL (14.0-18.0) Hematocrit 43.9 % (42-52) Mean Corpuscular Volume 86.8 fL (80-100) Mean Corpuscular Hemoglobin 30.6 pg (25-34) Mean Corpuscular Hemoglobin Concent 35.3 g/dl (32-36) Platelet Count 190 K/uL (130-400) Mean Platelet Volume 9.8 fL (7.4-10.4) Neutrophils (%) (Auto) 52.4 % Lymphocytes (%) (Auto) 34.9 % Monocytes (%) (Auto) 9.4 % Eosinophils (%) (Auto) 3.0 % Basophils (%) (Auto) 0.3 % Neutrophils # (Auto) 1.89 K/uL (1.4-6.5) Lymphocytes # (Auto) 1.26 K/uL (1.2-3.4) Monocytes # (Auto) 0.34 K/uL (0.11-0.59) Eosinophils # (Auto) 0.11 K/uL (0-0.5) Basophils # (Auto) 0.01 K/uL (0-0.2) RDW Standard Deviation 37.6 fL (36.4-46.3) RDW Coefficient of Variation 11.9 % (11.5-14.5) Immature Granulocyte % (Auto) 0.0 % Immature Granulocyte # (Auto) 0.00 K/uL (0.00-0.02) Est Creatinine Clear Calc Drug Dose 83.8 ml/min Estimated GFR () 105.6 Estimated GFR (Non- 91.1 BUN/Creatinine Ratio 14.9 (10-20) Calcium Level 9.4 mg/dl (8.5-10.1) Total Bilirubin 1.1 mg/dl (0.2-1) Direct Bilirubin 0.2 mg/dl (0-0.2) Aspartate Amino Transf (AST/SGOT) 20 U/L (15-37) Alanine Aminotransferase (ALT/SGPT) 25 U/L (12-78) Alkaline Phosphatase 90 U/L (45-117) Total Protein 7.8 gm/dl (6.4-8.2) Albumin 4.3 gm/dl (3.4-5.0) Lipase 108 U/L (73-393) Bedside Hemoglobin 15.6 g/dl (14.0-18.0) Bedside Hematocrit 46 % (42-52) Bedside Sodium 142 mEq/L (135-144) Bedside Potassium 3.6 mEq/L (3.3-5.0) Bedside Chloride 101 mEq/L (101-112) Bedside Total CO2 28 mEq/l (24-31) Anion Gap 17.0 mmol/L (16-25) Bedside Blood Urea Nitrogen 16 mg/dl (7-18) Bedside Creatinine 1.0 mg/dl (0.6-1.3) Bedside Glucose (other) 89 mg/dl (70-99) Bedside Ionized Calcium (Anil) 1.22 mmol/l (1.12-1.32) Laboratory results reviewed by [facility] ED Course 1506: The patient was evaluated in room C2. A complete history and physical exam was performed. 1715: I reevaluated the patient. Discussed results and discharge instructions: He verbalized understanding and agreement. The patient is ready for discharge. Medical Decision The patient is a 37 year old white male with a past medical history of asthma, graves disease, hyperthyroidism, hypothyroidism, irritable Bowel Syndrome and thyroidectomy who presents to the Emergency Room with complaints of intermittent right lower quadrant abdominal pain that he has been experiencing for the past month. Differential diagnosis: Etiologies such as appendicitis, diverticulitis, PUD, biliary pathology, UTI, pancreatitis, obstruction, mesenteric ischemia, aortic pathology, infections, inflammatory bowel disease, renal colic, as well as others were entertained. Patient was seen and evaluated the bedside. Patient did complain of some right lower quadrant right-sided groin pain that been ongoing for proximal in 1 month' s time. Patient was pending a gastroenterology referral but wanted to be seen sooner in the emergency department. On exam the patient does have some focal tenderness in the right lower quadrant. Patient does have a questionable obturators but negative psoas. Patient is circumcised and it does not have any testicular or penile discomfort. Patient did complain of some burning urination. Patient denies any history of kidney stones and no hematuria. Patient did have blood work completed did have a CT scan of the abdomen pelvis along with symptomatic control. Patient's blood work was fairly unremarkable and CT scan of the abdomen pelvis was also fairly unremarkable. Patient did have mild leukopenia at 3000 but the patient has normal blood counts and the patient has no prior history of any other issues. Patient denies true infectious symptoms other blood work is fairly reassuring less likely infection. Patient was told of these findings and was told to continue Motrin and Tylenol at home as the patient was not taking any medications at home. Patient was also given some Bentyl to see if that would help if he had persistent pain not amenable to [id number] type treatment. Patient was told continue to keep his outpatient follow-up appointment. I do not believe that he requires further evaluation or treatment in the emergency department at this time, and he is suitable for outpatient treatment. Patient was given strict follow-up, discharge, and return precautions. All questions were answered. Patient was deemed suitable for outpatient follow-up at this time. Patient agreed with the plan of care and was safely discharged home. Medication Reconcilliation Current Medication List: was personally reviewed by me Blood Pressure Screening Patient's blood pressure: Normal blood pressure Impression Primary Impression: Abdominal pain Scribe Attestation The scribe's documentation has been prepared under my direction and personally reviewed by me in its entirety. I confirm that the note above accurately reflects all work, treatment, procedures, and medical decision making performed by me. Departure Information Dispostion Home / Self-Care Prescriptions Dicyclomine Hcl (BENTYL) 10 Mg Cap 10 MG PO TID for Pain, #12 CAP Prov: Timo Paul M.D. 10/29/17 Referrals Chance Villarreal M.D. (PCP) Patient Instructions Abdominal Pain, My [facility] Additional Instructions Please return to the emergency department if you have worsening or recurrent symptoms not amenable to at-home treatment. Please call for a follow-up appointment with her primary care physician. Please take your medications as prescribed. If you have other concerns and/or complaints please feel free to also call your primary care physician's office or return the ED for further evaluation, management, and treatment. You may take 600 mg Ibuprofen every 6 hours as needed for pain with food for no more than 2 consecutive days. You may take tylenol 1000 mg every 6 hours as needed for pain. You may take motrin and tylenol separately or at the same time. If you still have discomfort you may try taking the Bentyl. Please follow-up with your instructor of education. Please consider using stool softeners like docusate and/or senna. Also increase the fiber in your diet as a supplement or through your food. Take your medications as prescribed. You have been examined and treated today on an emergency basis only. This is not a substitute for, or an effort to provide, complete comprehensive medical care. It is impossible to recognize and treat all injuries or illnesses in a single emergency department visit. It is therefore important that you follow up closely with [facility], your PCP, and/or your specialist(s). Call as soon as possible for an appointment. Thank you for your time and consideration. I look forward to speaking with you again soon. Please don't hesitate to call us if you have any questions. Problem Qualifiers Primary Impression: Abdominal pain Abdominal location: right lower quadrant Qualified Codes: R10.31 - Right lower quadrant pain
[2017-10-29] MEDS ORDERED: OPTIRAY 320 IV PRN (15:30)
[2017-10-29 15:52] LABS: BASO % 0.3 %; BASO ABS # 0.01 K/uL (0-0.2); EOS ABS # 0.11 K/uL (0-0.5); HEMATOCRIT 43.9 % (42-52); HEMOGLOBIN 15.5 g/dL (14.0-18.0); LYMPH % 34.9 %; LYMPH ABS # 1.26 K/uL (1.2-3.4); MEAN CELL VOLUME 86.8 fL (80-100); MEAN CORPUSCULAR HEMOGLOBIN 30.6 pg (25-34); MEAN CORPUSCULAR HGB CONC 35.3 g/dl (32-36); MEAN PLATELET VOLUME 9.8 fL (7.4-10.4); MONO % 9.4 %; MONO ABS # 0.34 K/uL (0.11-0.59); NEUT % 52.4 %; NEUT ABS # 1.89 K/uL (1.4-6.5); PLATELET COUNT 190 K/uL (130-400); RED CELL DISTRIBUTION WIDTH CV 11.9 % (11.5-14.5); RED CELL DISTRIBUTION WIDTH SD 37.6 fL (36.4-46.3); WHITE BLOOD COUNT 3.61 K/uL (4.8-10.8)
[2017-10-29 16:13] LABS: ALBUMIN 4.3 gm/dl (3.4-5.0); CALCIUM 9.4 mg/dl (8.5-10.1); CREATININE 1.03 mg/dl (0.60-1.40); POTASSIUM 3.5 mmol/L (3.5-5.1)
[2017-10-29 16:15] LABS: TOTAL PROTEIN 7.8 gm/dl (6.4-8.2)
--- NOTE | 2017-10-29 16:37 | DIAGNOSTIC IMAGING REPORT ---
ABD/PELVIS IV CONTRAST ONLY CLINICAL HISTORY: 37 years-old Male presenting with RLQ TTP. TECHNIQUE: Multidetector CT of the abdomen and pelvis was performed after the administration of intravenous contrast. IV contrast: 110 mL of Optiray 320. A dose lowering technique was used consistent with the principles of ALARA (as low as reasonably achievable). COMPARISON: 04/29/2009. CT DOSE (mGy.cm): The estimated cumulative dose is 288.01 mGy.cm. 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 Lung bases: Lungs and pleural spaces clear. Normal heart size. No pericardial or pleural effusion. Liver: Normal morphology. No liver lesion. Patent hepatic vasculature. Biliary: No intrahepatic or extrahepatic biliary ductal dilatation. Normal gallbladder. Pancreas: Normal. Spleen: Normal. Adrenal glands: Normal. Kidneys and ureters: Subcentimeter hypodensity in the right kidney likely simple cyst. Punctate nonobstructing calculus in the left kidney. Bladder: Incompletely evaluated secondary to underdistention. Pelvic organs: Prostate and seminal vesicles normal. Bowel: Normal. No bowel obstruction. Peritoneal cavity: No free fluid or intraperitoneal gas. Lymph nodes: No enlarged lymph nodes in the abdomen or pelvis. Vasculature: Aorta and IVC patent and normal in caliber. Abdominal wall: Small fat-containing umbilical hernia. Musculoskeletal: Bone island noted in in the right pubis. Osseous structures normal. IMPRESSION: 1. No acute intra-abdominal pathology. Electronically signed by: Toni Santoro M.D. 10/29/2017 4:36 PM Dictated Date/Time: 10/29/2017 4:30 PM
[2017-10-29 16:52] LABS: ISTAT IONIZED CALCIUM 1.22 mmol/l (1.12-1.32); ISTAT POTASSIUM 3.6 mEq/L (3.3-5.0)
[2017-10-29 17:30] VITALS: BP 124/74; PULSE 65; O2SAT 97
[2017-10-29] MEDS ORDERED: DICY10CA55 PO (17:30)
== END 2017-10-29 17:42 | disposition home or self-care (01) ==
LOC: C.EDB 12:03 → C.EDC 17:42
DX: R10.31 Right lower quadrant pain (principal); E03.9 Hypothyroidism, unspecified; K58.9 Irritable bowel syndrome, unspecified; Z79.899 Other long term (current) drug therapy; Z88.1 Allergy status to other antibiotic agents; Z88.8 Allergy status to other drugs, medicaments and biological substances

== ENCOUNTER 2018-09-21 21:38 | Observation (INO) ==
--- NOTE | 2018-09-21 21:57 | Emergency Department Note ---
History of Present Illness General Chief complaint: GI Assessment Stated complaint: STOMACH/BACK/CHEST PAIN, S/P SURGERY Time Seen by Provider: 09/21/18 21:44 History of Present Illness Maximum Pain Intensity: 7 This is a 38-year-old male that presents to the emergency department via private vehicle with complaints of "stomach/shoulder/chest pain, status post surgery". The patient notes that yesterday he had a laparoscopic right inguinal hernia repair. This was performed by Dr. Lundberg. He states that he was doing well however earlier today began with pain in the chest that radiates to his shoulders, as well as in the upper abdomen. He notes lots of burping and minimal flatulence. He denies any fevers or chills. He denies any underlying medical problems. Pain is a 7/10. Home Medications Home Medications Medication Instructions Recorded Confirmed Type ibuprofen [Advil] 400 mg PO UD PRN 06/30/18 09/21/18 History ranitidine HCl 150 mg PO HS PRN 06/30/18 09/21/18 History acetaminophen [Tylenol Extra 1,000 mg PO Q6H PRN 09/21/18 09/21/18 History Strength] levothyroxine 150 mg PO QAM 09/21/18 09/21/18 History Allergies Allergy/AdvReac Type Severity Reaction Status Date / Time Sulfa (Sulfonamide Allergy Mild Unknown Verified 09/21/18 23:05 Antibiotics) amoxicillin Allergy Unknown RASH Verified 09/21/18 23:05 clavulanic acid Allergy Unknown RASH Verified 09/21/18 23:05 promethazine Allergy Unknown ITCHY/JITTE Verified 09/21/18 23:05 RY tramadol Allergy Unknown UNKNOWN Verified 09/21/18 23:05 Past Med/Surg History Medical History Asthma (Chronic) Hyperthyroidism (Resolved) Hypothyroidism (Chronic) Surgical History H/O thyroidectomy (Resolved) Hx of hernia repair Social History Preferred Language: South Korean Feels Safe at Home: Yes Smoking Status: Never smoker Review of Systems A total of 10 systems reviewed and were otherwise negative Physical Exam Vital Signs Vital Signs - 24 hr 09/21/18 21:40 09/21/18 23:28 09/22/18 00:39 Temperature 36.8 C Temperature Source Oral Sepsis Recent Fever Within 48 Hours No Sepsis Action Taken by Nursing No Action Required Pulse Rate 58 L 56 L Pulse Rate [Right] 50 L Pulse Rhythm [Right] Regular Pulse Strength [Right] Normal Respiratory Rate 18 16 16 Respiratory Effort / Characteristics Non-Labored Spontaneous Non-Labored Spontaneous Respiratory Depth Normal Respiratory Pattern Regular Blood Pressure 129/77 110/67 Blood Pressure [Left Arm] 127/58 L Blood Pressure Mean 94 Blood Pressure Mean [Left Arm] 81 Blood Pressure Position [Left Arm] Lying Pulse Oximetry 98 99 99 Oxygen Delivery Method Room Air Room Air Room Air VITAL SIGNS - Vital signs and nursing notes were reviewed. Stable and afebrile. GENERAL -38-year-old male appearing his stated age who is in no acute distress. Communicates well with provider and answers questions appropriately. SKIN - Without rashes. No meningeal or petechial rash. HEAD - NC/AT. EYES - PERRL with EOMI bilaterally. Sclera anicteric. EARS - No deformities of external structures noted on gross examination bilat erally. NOSE - Midline and without cyanosis. No epistaxis or purulent drainage noted. MOUTH/OROPHARYNX - Without perioral cyanosis. Buccal mucosa pink and moist and without leukoplakia. Tongue midline with equal elevation of palate bilaterally. No tonsillar hypertrophy, erythema, or exudates noted. Fair dentition noted. NECK - Neck with FROM. Supple to palpation. No lymphadenopathy noted. No nuchal rigidity. LUNGS - Chest wall symmetric without accessory muscle use, intercostals retractions, or central cyanosis. Normal vesicular breath sounds CTA B/L. No wheezes, rales, or rhonchi appreciated. CARDIAC - RRR with S1/S2. No murmur, rubs, or gallops appreciated. ABDOMEN - Abdominal contour normal without pulsations or visible masses. There are 3 surgical sites that are covered with a dressing. No bleeding or erythema of these regions. EXTREMITIES - No clubbing or peripheral cyanosis. No pretibial edema present. +5/5 strength noted in UE/LE bilaterally. NEUROLOGIC - Cranial nerves II through XII grossly intact. Sensory intact to light touch throughout. PSYCH - A&O, and cooperates fully with examiner. Pt is very pleasant and interacts well with examiner. Course Administered Medications Ioversol (Optiray 320 100ml) 94 ml IV ONCE PRN PRN Reason: Interaction Checking Stop: 09/25/18 23:16 Last Admin: 09/21/18 23:17 Dose: 94 ml Documented by: [id number] Discontinued Medications Sodium Chloride (Nss 1000ml) 1,000 mls @ 999 mls/hr IV .Q1H1M CRISTA Stop: 09/22/18 00:00 Last Infusion: 09/22/18 00:36 Dose: 0 mls/hr Documented by: [id number] Admin: 09/21/18 23:28 Dose: 999 mls/hr Documented by: [id number] Medical Decision Making Laboratory Data Result diagrams: 09/21/18 22:20 09/21/18 22:20 Lab Results 09/21/18 09/21/18 09/21/18 Range/Units 22:20 22:20 22:20 WBC 7.22 (4.8-10.8) K/uL RBC 4.34 L (4.7-6.1) M/uL Hgb 13.4 L (14.0-18.0) g/dL Hct 39.6 L (42-52) % MCV 91.2 (80-100) fL MCH 30.9 (25-34) pg MCHC 33.8 (32-36) g/dL RDW Std Deviation 40.8 (36.4-46.3) fL RDW Coeff of Asaf 12.2 (11.5-14.5) % Plt Count 160 (130-400) K/uL MPV 10.7 H (7.4-10.4) fL Immature Gran % (Auto) 0.1 % Neut % (Auto) 57.4 % Lymph % (Auto) 34.2 % Lyon % (Auto) 7.2 % Eos % (Auto) 0.8 % Baso % (Auto) 0.3 % Immature Gran # (Auto) 0.01 (0.00-0.02) K/uL Neut # (Auto) 4.14 (1.4-6.5) K/uL Lymph # (Auto) 2.47 (1.2-3.4) K/uL Lyon # (Auto) 0.52 (0.11-0.59) K/uL Eos # (Auto) 0.06 (0-0.5) K/uL Baso # (Auto) 0.02 (0-0.2) K/uL Sodium 140 (136-145) mmol/L Potassium 3.9 (3.5-5.1) mmol/L Chloride 107 (98-107) mmol/L Carbon Dioxide 28 (21-32) mmol/L Anion Gap 6.0 (3-11) BUN 16 (7-18) mg/dl Creatinine 0.93 (0.6-1.4) mg/dl Est Cr Clr Drug Dosing 91.8 ml/min Est GFR ( Amer) 118.6 Est GFR (Non-Af Amer) 102.3 BUN/Creatinine Ratio 16.9 (10-20) Glucose 94 (70-99) mg/dl Calcium 8.4 L (8.5-10.1) mg/dl Magnesium 1.9 (1.8-2.4) mg/dl Total Bilirubin 0.5 (0.2-1) mg/dl AST 15 (15-37) U/L ALT 22 (12-78) U/L Alkaline Phosphatase 61 (45-117) U/L Troponin I < 0.015 (0-0.045) ng/ml Total Protein 6.7 (6.4-8.2) gm/dl Albumin 3.7 (3.4-5.0) gm/dl Globulin 3.0 (2.5-4.0) gm/dl Albumin/Globulin Ratio 1.3 (0.9-2) Lipase 137 (73-393) U/L Urine Color Yellow Urine Appearance Clear (Clear) Urine pH 6.5 (4.5-7.5) Ur Specific Monarch 1.018 (1.000-1.030) Urine Protein Negative (Negative) Urine Glucose (UA) Negative (Negative) Urine Ketones Negative (Negative) Urine Blood Negative (Negative) Urine Nitrite Negative (Negative) Urine Bilirubin Negative (Negative) Urine Urobilinogen Negative (Negative) Ur Leukocyte Esterase Negative (Negative) Imaging Data Radiologist's Impression: XR chest 1V portable CLINICAL HISTORY: pain in chest/abd COMPARISON STUDY: 06/28/2017 FINDINGS: The bones soft tissues and hemidiaphragms are normal. The cardiomediastinal silhouette is normal. The lungs are clear. The pulmonary vasculature is normal. Trace subdiaphragmatic free air on a postoperative basis..:. IMPRESSION: No acute process. CT ABDOMEN & PELVIS With Contrast: Status post right lower quadrant inguinal hernia repair. There is a moderate to large amount of intraperitoneal free air as well as subcutaneous gas along the anterior abdominal wall extending down into the scrotum and inguinal regions bilaterally. These changes may be related to recent surgery, however a bowel injury/perforation near the surgical site cannot entirely be excluded. There is no evidence of an abscess. Past within the urinary bladder is likely related to recent catheterization. No evidence of bowel obstruction. No findings to suggest appendicitis. Also Radiologist: Galen Mari DO Study ready at 23:28 and initial results transmitted at 23:42 Critical Value Communications Clear Time Type Notes 09/21/18 23:40 Call Doctor Regarding Above results, called EVER Chacon on 09/21 23:40 (-05:00) The above report was generated using voice recognition software. It may contain grammatical, syntax or spelling errors. Electronically signed by: Juan Garcia M.D. 09/21/2018 10:15 PM MDM Narrative Patient was seen and evaluated as above in room B6. Review was performed of nursing notes and vital signs. After obtaining a thorough history and physical examination the above work up was performed. He presents to us today with pain status post surgery that was yesterday in the right inguinal region. He notes pain in the upper abdomen, chest and into the shoulders. He numerically rates the pain is a 7/10. He also notes excessive eructation and minimal flatulence. He spoke to the on-call surgeon, his symptoms persisted and worsened therefore p resented here to the emergency department. Baseline labs were obtained. He declined pain medication. CBC reveals no concerning leukocytosis. Minimal anemia with hemoglobin of 13.4. No emergent metabolic process. Troponin is negative. Urinalysis is also negative. Sinus bradycardia at 44 bpm. Patient notes a history of slow heartbeat. I did discuss these findings with the on- call general surgeon, Dr. Henderson. We also discussed the patient's chest x-ray. He recommended a CT scan of the abdomen and pelvis with IV contrast. He came down to see the patient and will admit him for further evaluation and management. Please refer to further documentation regarding his stay. I did discuss with him the findings of the CT and at this time it is felt that this these CT scan findings are expected postoperative findings. Please refer to further documentation regarding his stay. In the evaluation and treatment of this patient, the following differential diagnoses were considered: ASC, IL, Pneumonia, postoperative pain, infection, bowel injury, among others. Impression & Plan Post-operative state, Abdominal pain, Eructation, Bilateral shoulder pain Discharge Plan Visit Data Chief Complaint: GI Assessment Stated Complaint: STOMACH/BACK/CHEST PAIN, S/P SURGERY ED Provider: Boyd Delaney ED Midlevel Provider: Олег Chacon Discharge Problem: Post-operative state, Abdominal pain, Eructation, Bilateral shoulder pain Patient Disposition: Admitted As Inpatient Condition: Good Discharge Instructions Interventions: ED Discharge Assessment Last Done: 09/22/18 00:39 Forms Stand Alone Forms: ROLI Prescriptions Prescriptions: No Action ibuprofen [Advil] 200 mg Tablet 400 mg PO UD PRN (Reason: Pain) RF: 0 ranitidine HCl 150 mg Tablet 150 mg PO HS PRN (Reason: Heartburn) RF: 0 acetaminophen [Tylenol Extra Strength] 500 mg Tablet 1,000 mg PO Q6H PRN (Reason: Pain) RF: 0 levothyroxine 150 mcg tablet 150 mg PO QAM RF: 0 Referrals Referrals: Chance Villarreal MD [Primary Care Provider] -
--- NOTE | 2018-09-21 22:16 | XRay Report ---
XR chest 1V portable CLINICAL HISTORY: pain in chest/abd COMPARISON STUDY: 06/28/2017 FINDINGS: The bones soft tissues and hemidiaphragms are normal. The cardiomediastinal silhouette is n ormal. The lungs are clear. The pulmonary vasculature is normal. Trace subdiaphragmatic free air on a postoperative basis..:. IMPRESSION: No acute process. The above report was generated using voice recognition software. It may contain grammatical, syntax or spelling errors. Electronically signed by: Juan Garcia M.D. 09/21/2018 10:15 PM
[2018-09-21 22:35] LABS: Appearance Urine Clear (Clear); Bilirubin Urine Negative (Negative); Blood Urine Negative (Negative); Color Urine Yellow; Glucose Urine UA Negative (Negative); Ketones Urine Negative (Negative); Leukocyte Esterase Urine Negative (Negative); Nitrite Urine Negative (Negative); Protein Urine Negative (Negative); Specific Gravity Urine 1.018 (1.000-1.030); Urobilinogen Urine Negative (Negative); pH Urine 6.5 (4.5-7.5)
[2018-09-21 22:44] LABS: Basophils # (auto) 0.02 K/uL (0-0.2); Basophils % (auto) 0.3 %; Eosinophils # (auto) 0.06 K/uL (0-0.5); Eosinophils % (auto) 0.8 %; Hematocrit (blood only) 39.6 % (42-52); Hemoglobin 13.4 g/dL (14.0-18.0); Immature Granulocytes # (auto) 0.01 K/uL (0.00-0.02); Immature Granulocytes % (auto) 0.1 %; Lymphocytes # (auto) 2.47 K/uL (1.2-3.4); Lymphocytes % (auto) 34.2 %; Mean Corpuscular Hgb Conc 33.8 g/dL (32-36); Mean Corpuscular Volume 91.2 fL (80-100); Mean Platelet Volume 10.7 fL (7.4-10.4); Monocytes # (auto) 0.52 K/uL (0.11-0.59); Monocytes % (auto) 7.2 %; Neutrophils # (auto) 4.14 K/uL (1.4-6.5); Neutrophils % (auto) 57.4 %; Platelet Count 160 K/uL (130-400); RDW Coefficient of Variation 12.2 % (11.5-14.5); RDW Standard Deviation 40.8 fL (36.4-46.3); Red Blood Count 4.34 M/uL (4.7-6.1); White Blood Count 7.22 K/uL (4.8-10.8)
[2018-09-21] MEDS ORDERED: SODIUM CHLORIDE 0.9% 1000ML 1,000 ML IV SCH (23:00)
[2018-09-21 23:04] LABS: Alanine Aminotransferase 22 U/L (12-78); Albumin Level 3.7 gm/dl (3.4-5.0); Aspartate Aminotransferase 15 U/L (15-37); BUN Creatinine Ratio 16.9 (10-20); Blood Urea Nitrogen 16 mg/dl (7-18); Calcium 8.4 mg/dl (8.5-10.1); Carbon Dioxide 28 mmol/L (21-32); Chloride 107 mmol/L (98-107); Creatinine Clr Calc Pharmacy 91.8 ml/min; Est GFR (African American) 118.6; Est GFR (Non-African American) 102.3; Glucose 94 mg/dl (70-99); Magnesium 1.9 mg/dl (1.8-2.4); Potassium 3.9 mmol/L (3.5-5.1); Sodium 140 mmol/L (136-145)
[2018-09-21 23:09] LABS: Albumin Globulin Ratio 1.3 (0.9-2); Alkaline Phosphatase 61 U/L (45-117); Bilirubin,Total 0.5 mg/dl (0.2-1); Total Protein 6.7 gm/dl (6.4-8.2); Troponin I < 0.015 ng/ml (0-0.045)
[2018-09-21] MEDS ORDERED: IOVERSOL 100ml IV PRN (23:17)
--- NOTE | 2018-09-21 23:20 | History & Physical Report ---
Date of Service September 21, 2018 Assessment & Plan (1) Abdominal pain: I suspect he has mild incidental ileus- will check CT scan adm, obs- antiemetics, analgesics, clear liquids possible medical eval- check lytes supportive care History of Present Illness Primary Care Provider: Chance Villarreal MD adm vie ER with postop c/o of bloating, shoulder , chest pain breathing comfortable, some belching, some flatus yesterday 09/20/18- lap Rt inguinal hernia repair- Dr Lundberg Allergies Allergy/AdvReac Type Severity Reaction Status Date / Time Sulfa (Sulfonamide Allergy Mild Unknown Verified 09/21/18 23:05 Antibiotics) amoxicillin Allergy Unknown RASH Verified 09/21/18 23:05 clavulanic acid Allergy Unknown RASH Verified 09/21/18 23:05 promethazine Allergy Unknown ITCHY/JITTE Verified 09/21/18 23:05 RY tramadol Allergy Unknown UNKNOWN Verified 09/21/18 23:05 Home Medications Home Medications Medication Instructions Recorded Confirmed Type ibuprofen [Advil] 400 mg PO UD PRN 06/30/18 09/21/18 History ranitidine HCl 150 mg PO HS PRN 06/30/18 09/21/18 History acetaminophen [Tylenol Extra 1,000 mg PO Q6H PRN 09/21/18 09/21/18 History Strength] levothyroxine 150 mg PO QAM 09/21/18 09/21/18 History Past Med/Surg History Medical History Asthma (Chronic) Hyperthyroidism (Resolved) Hypothyroidism (Chronic) Surgical History H/O thyroidectomy (Resolved) Hx of hernia repair Social History Preferred Language: Martiniquais Feels Safe at Home: Yes Smoking Status: Never smoker Physical Exam Vital Signs (Past 24 Hours): Last Vital Signs Temp 36.8 C 09/21/18 21:40 Pulse 58 L 09/21/18 21:40 Resp 18 09/21/18 21:40 BP 129/77 09/21/18 21:40 Pulse Ox 98 09/21/18 21:40 Constitutional: well developed and well nourished; no acute distress Respiratory: normal respiratory effort; no respiratory distress Cardiovascular: Rate/Rhythm: regular rate and regular rhythm Gastrointestinal (Abdomen): Inspection/Auscultation: + abdomen distended and normal bowel sounds Percussion/Palpation: abdomen nontender Skin: no rashes, warm and dry Psychiatric: Orientation: alert
[2018-09-22] MEDS ORDERED: HYDROCODONE/ACETAMOPHEN 5/325MG TAB PO PRN ×2 (01:15)
[2018-09-22] MEDS ORDERED: ONDANSETRON INJ 2 MG/ML 2 ML VIAL IV PRN (01:15)
[2018-09-22] MEDS ORDERED: HYDROmorphone INJ 0.5 MG/0.5 ML SYR IV PRN (01:15)
[2018-09-22] MEDS ORDERED: IBUPROFEN 600 MG TAB PO PRN (01:15)
[2018-09-22] MEDS: SODIUM CHLORIDE 0.9% 1000ML 1,000 ML IV SCH ×2 (03:05→15:53)
[2018-09-22] MEDS: ACETAMINOPHEN 325 MG TAB PO PRN (05:55)
[2018-09-22] MEDS: LEVOTHYROXINE SODIUM 150 MCG TABLET PO SCH (05:56)
--- NOTE | 2018-09-22 06:31 | Progress Note ---
Date of Service September 22, 2018 Assessment & Plan (1) Abdominal pain: he seems to be doing ok- will adv diet encourage ambulation, check labs- if progresses- d/c later today Subjective feeling better- passing flatus, some mild cramps CT- pneumoperitoneum and subcu air from surgery Physical Exam Vital Signs (Past 24 Hours): Last Vital Signs Temp 36.6 C 09/22/18 00:48 Pulse 56 L 09/22/18 00:48 Resp 16 09/22/18 00:48 BP 125/79 09/22/18 00:48 Pulse Ox 96 09/22/18 00:48 abd softer- good bowel sounds
[2018-09-22 07:09] LABS: Albumin Level 3.5 gm/dl (3.4-5.0); BUN Creatinine Ratio 17.3 (10-20); Calcium 8.7 mg/dl (8.5-10.1); Creatinine Clr Calc Pharmacy 112.4 ml/min; Est GFR (African American) 132.3; Est GFR (Non-African American) 114.1; Potassium 3.9 mmol/L (3.5-5.1)
[2018-09-22 07:12] LABS: Albumin Globulin Ratio 1.2 (0.9-2); Bilirubin,Total 0.7 mg/dl (0.2-1); Globulin 2.9 gm/dl (2.5-4.0); Phosphorus 3.2 mg/dl (2.5-4.9); Total Protein 6.4 gm/dl (6.4-8.2)
--- NOTE | 2018-09-22 08:04 | CT Scan Report ---
ABDOMEN AND PELVIS CT WITH IV CONTRAST CT DOSE: 302.32 mGy.cm HISTORY: Acute generalized abdominal pain with history of prior repair abd pain s/p surgery TECHNIQUE: Multiaxial CT images of the abdomen and pelvis were performed following the use of intrave nous contrast. A dose lowering technique was utilized adhering to the principles of ALARA. COMPARISON STUDY: CT abdomen and pelvis 10/29/2017. FINDINGS: Lung bases are generally clear. Minimal subsegmental bibasilar atelectasis. Moderate to large amount of intraperitoneal free air is noted, probably within the abdominal right upper quadrant. No pneumat osis or portal venous gas. The imaged inferior cardiac chambers appear unremarkable. Gallbladder, liver, spleen, pancreas and adrenal glands are unremarkable. Nonobstructing calculi sharan uring up to 4 mm noted about the left kidney. No ureteral calculi or obstructive uropathy identified. Punctate nonobstructing calculus noted about the interpolar right kidney. Air noted within the bladd er lumen. Prostate is unremarkable. Aorta and IVC are within normal limits. Trace free pelvic fluid. No bowel obstruction or focal bowel wall thickening. Fluid-filled loops of small bowel are noted abou t the left abdomen, likely physiologic. The visualized appendix is air-filled and appears nondilated within the abdominal right lower quadrant. Large amount of subcutaneous and deep tissue edema about the anterior abdominal and pelvic wall exten jane into the upper scrotum. Postoperative changes compatible with prior right inguinal hernia repair with surgical clips and stranding noted. No drainable fluid collection. Inferior cecum extends close proximity to the right inguinal canal clips. No definite evidence of bowel injury on this study. Tin y fat filled periumbilical hernia. Bones appear to be intact. IMPRESSION: 1. Postoperative changes compatible with recent right inguinal hernia repair. Moderate to large volum e pneumoperitoneum with subcutaneous emphysema about the anterior abdominal and pelvic wall extends i nto the upper scrotum. Findings appear greater than expected for this type of surgery and underlying bowel injury is a differential consideration, however not definitively seen. Note that the inferior c ecum is within very close proximity to the right inguinal surgical clips. Follow-up recommended. 2. No pneumatosis or portal venous air. 3. No drainable fluid collection. 4. Trace free pelvic fluid. 5. Air within urinary bladder lumen, likely secondary to recent instrumentation. Correlate with urina lysis. Electronically signed by: Sohail Liriano M.D. 09/22/2018 8:02 AM
[2018-09-22] MEDS ORDERED: MAGNESIUM HYDROXIDE SUSP 30 ML UDC PO STA (13:30)
[2018-09-22] MEDS ORDERED: DOCUSATE SODIUM/SENNA 50/8.6MG TAB PO STA (13:30)
[2018-09-22] MEDS ORDERED: BISACODYL 10 MG SUPP PR STA (22:03)
[2018-09-22] MEDS ORDERED: POLYETHYLENE (MIRALAX) 17 GM PACK PO PRN (22:03)
[2018-09-23] MEDS: ACETAMINOPHEN 325 MG TAB PO PRN (00:27)
[2018-09-23] MEDS ORDERED: POLYETHYLENE (MIRALAX) 17 GM PACK PO STA (05:31)
--- NOTE | 2018-09-23 05:39 | Discharge Summary ---
Date of Service September 23, 2018 Admission HPI Per Admitting Provider adm vie ER with postop c/o of bloating, shoulder , chest pain breathing comfortable, some belching, some flatus yesterday 09/20/18- lap Rt inguinal hernia repair- Dr Lundberg Principal Diagnosis see chart Discharge Data Allergies Allergy/AdvReac Type Severity Reaction Status Date / Time Sulfa (Sulfonamide Allergy Mild Unknown Verified 09/21/18 23:05 Antibiotics) amoxicillin Allergy Unknown RASH Verified 09/21/18 23:05 clavulanic acid Allergy Unknown RASH Verified 09/21/18 23:05 promethazine Allergy Unknown ITCHY/JITTE Verified 09/21/18 23:05 RY tramadol Allergy Unknown UNKNOWN Verified 09/21/18 23:05 Consultations 09/21/18 23:10 ED Decision to Admit Stat Ordered Studies 09/21/18 22:47 CT abd pelvis IV con only Urgent Hospital Course (1) Abdominal pain: pt progressed slowly- concern for bowel function given Sen S, MOM and suppository also Miralax on d/c- to f/u with Dr Lundberg Total Time Total Time Spent Total Time Spent (In Minutes): 30 min Discharge Plan Discharge Items Patient Disposition: Home - Self-Care Reason For Visit: ABD PAIN, BLOATING Discharge Diagnosis: abdominal pain Condition: Good Discharge Goals: Decrease discomfort, Improve disease control and Improve function Activity Comment: as in hernia instructions Lifting: Wait until after follow-up appointment Bathing Comment: may shower Sexual Activity: When tolerated Driving/Machine Use Comment: as in hernia instructions Non-emergency contact: Primary Care Provider and Surgeon Call non-emergency contact if: your pain is not controlled, your temperature is above 101 and your wound has increased drainage Follow-up/Referrals: Chance Villarreal MD [Primary Care Provider] - Diet: Regular Addtl Provider Instructions: see hernia repair instructions may use Miralax 2-3 times per day for constipation also * Avoid constipation * May Use Senokot S and Milk of Magnesium twice daily as directed on the package Prescriptions: Continued ibuprofen [Advil] 200 mg Tablet 400 mg PO UD PRN (Reason: Pain) RF: 0 ranitidine HCl 150 mg Tablet 150 mg PO HS PRN (Reason: Heartburn) RF: 0 acetaminophen [Tylenol Extra Strength] 500 mg Tablet 1,000 mg PO Q6H PRN (Reason: Pain) RF: 0 levothyroxine 150 mcg tablet 150 mg PO QAM RF: 0 Stand-Alone Forms: [facility] Discharge Orders: Discharge Order (Routine); Ordered 09/23/18 Ordered By: Galen Henderson Admission Data Admit Date/Time: 09/21/18 23:14 Attending Provider: Galen Henderson Admit Provider: Galen Henderson Primary Care Provider: Chance Villarreal Other Providers: Galen Henderson Service: Surgical Services
[2018-09-23 06:11] LABS: BUN Creatinine Ratio 13.6 (10-20); Calcium 8.3 mg/dl (8.5-10.1); Creatinine Clr Calc Pharmacy 94.9 ml/min; Est GFR (African American) 123.4; Est GFR (Non-African American) 106.5; Magnesium 2.1 mg/dl (1.8-2.4); Potassium 3.6 mmol/L (3.5-5.1)
[2018-09-23] MEDS: LEVOTHYROXINE SODIUM 150 MCG TABLET PO SCH (06:11)
[2018-09-23 06:17] LABS: Albumin Globulin Ratio 1.1 (0.9-2); Albumin Level 3.4 gm/dl (3.4-5.0); Bilirubin,Total 0.7 mg/dl (0.2-1); Globulin 3.2 gm/dl (2.5-4.0); Phosphorus 3.3 mg/dl (2.5-4.9); Total Protein 6.6 gm/dl (6.4-8.2)
== END 2018-09-23 10:50 | disposition home or self-care (01) ==
LOC: ED 21:38 → 3N 21:38